=== PATIENT | female | born 1985 | race Caucasian/White ===

== ENCOUNTER 2017-07-06 20:48 | Emergency (ER) | payer SELFPAY ==
[~2017-07-06] VITALS: Ht 172.7 cm; Wt 81.6 kg
[2017-07-06 21:03] VITALS: BP 136/89
[2017-07-06 21:26] LABS: MICROSCOPIC NOT IND
[2017-07-06 21:29] LABS: CULTURE INDICATED? NO
[2017-07-06] MEDS ORDERED: PHENAZOPYRIDINE 200 MG TABLET PO ONE (21:51)
[2017-07-06] MEDS ORDERED: PHENAZOPYRIDINE 200 MG TABLET ONE (21:56)
== END 2017-07-06 22:05 | disposition home or self-care (01) ==
LOC: ED 22:00
DX: N30.00 Acute cystitis without hematuria (principal)
CPT/HCPCS: 81003; 81025; 99284